=== PATIENT | female | born 1975 | race Caucasian/White ===

== ENCOUNTER 2019-05-04 18:13 | Emergency (ER) | payer MEDICAID ==
[~2019-05-04] VITALS: Ht 167.6 cm; Wt 70.3 kg
[2019-05-04 18:22] VITALS: Ht 167.6 cm; Wt 70.3 kg
[2019-05-04 21:12] VITALS: BP 123/70
== END 2019-05-04 21:12 | disposition home or self-care (01) ==
LOC: ED 18:13
DX: S63.502A Unspecified sprain of left wrist, initial encounter (principal); S63.501A Unspecified sprain of right wrist, initial encounter; S00.83XA Contusion of other part of head, initial encounter; S09.8XXA Other specified injuries of head, initial encounter; W01.198A Fall on same level from slipping, tripping and stumbling with subsequent striking against other object, initial encounter; Y93.89 Activity, other specified; Y92.89 Other specified places as the place of occurrence of the external cause; Y99.8 Other external cause status
CPT/HCPCS: 90715